=== PATIENT | female | born 1985 | race Two or more races ===

== ENCOUNTER 2021-04-09 15:07 | Outpatient (CLI) | payer OTHER ==
[~2021-04-09 15:07] MED LIST: OSEL75CA; OSEL75CA PO
== END 2021-04-09 16:41 | disposition home or self-care (01) ==
LOC: PRENATAL 15:07
PROVIDERS: ATTEND Obstetrics & Gynecology Maternal & Fetal Medicine
DX: Z36.89 Encounter for other specified antenatal screening (principal); O36.80X1 Pregnancy with inconclusive fetal viability, fetus 1; O09.511 Supervision of elderly primigravida, first trimester; Z3A.11 11 weeks gestation of pregnancy

== ENCOUNTER 2021-06-12 08:17 | Outpatient (CLI) | payer OTHER | END 2021-06-12 09:20 | disposition home or self-care (01) | LOC: PRENATAL 08:17 | PROVIDERS: ATTEND Obstetrics & Gynecology Maternal & Fetal Medicine | DX: O35.0XX1 Maternal care for (suspected) central nervous system malformation in fetus, fetus 1 (principal); O35.3XX1 Maternal care for (suspected) damage to fetus from viral disease in mother, fetus 1; O98.512 Other viral diseases complicating pregnancy, second trimester; O09.522 Supervision of elderly multigravida, second trimester; Z36.89 Encounter for other specified antenatal screening; Z3A.21 21 weeks gestation of pregnancy ==

== ENCOUNTER 2021-08-25 14:57 | Outpatient (CLI) | payer OTHER | END 2021-08-25 20:00 | disposition home or self-care (01) | LOC: OBS/DEL 14:57 | PROVIDERS: ATTEND Obstetrics & Gynecology | DX: O60.03 Preterm labor without delivery, third trimester (principal); Z3A.30 30 weeks gestation of pregnancy ==

== ENCOUNTER 2021-09-04 09:37 | Outpatient (CLI) | payer OTHER | END 2021-09-04 10:38 | disposition home or self-care (01) | LOC: PRENATAL 09:37 | PROVIDERS: ATTEND Obstetrics & Gynecology Maternal & Fetal Medicine | DX: O09.529 Supervision of elderly multigravida, unspecified trimester (principal); O35.0XX0 Maternal care for (suspected) central nervous system malformation in fetus, not applicable or unspecified; O26.849 Uterine size-date discrepancy, unspecified trimester ==

== ENCOUNTER 2024-02-23 10:06 | Day surgery (SDC) | payer OTHER ==
[2024-02-10 11:23] LABS: HEMATOCRIT 39.9 % (36.0-45.00); HEMOGLOBIN 13.9 g/dL (12.0-15.00); MEAN CELL VOLUME 90.6 fL (80.00-100.00); MEAN CORPUSCULAR HEMOGLOBIN 31.6 pg (27.00-32.0); MEAN CORPUSCULAR HGB CONC 34.9 g/dl (32.0-36.0); PLATELET COUNT 377 K/uL (150-450); RED CELL DISTRIBUTION WIDTH 12.6 % (11.5-14.5)
[2024-02-10 11:46] LABS: INR 1.02; PARTIAL THROMBOPLASTIN TIME 27.9 SECONDS (22.0-34.0); PROTHROMBIN TIME 10.7 SECONDS (9.0-11.5)
[2024-02-10 11:47] LABS: URINE APPEARANCE Clear; URINE BILIRRUBIN Negative (NEGATIVE); URINE BLOOD Trace; URINE COLOR Yellow; URINE GLUCOSE Negative (NEGATIVE); URINE KETONE Negative (NEGATIVE); URINE LEUKOCYTE Negative; URINE NITRATE Negative; URINE PROTEIN Negative (NEGATIVE); URINE UROBILINOGEN 0.2 E.U./dl
[2024-02-10 11:52] LABS: URINE BACTERIA 770.9 uL (0.0-1933); URINE EPITHELIAL CELLS 18.6 uL (0.0-38.8); URINE RBC 4.8 uL (0.0-20.8); URINE WBC 9.5 uL (0.0-23.2)
[2024-02-10 12:06] LABS: CALCIUM 9.2 mg/dL (8.5-10.1); CREATININE SERUM 0.75 mg/dL (0.55-1.02); GFR 86.95; POTASSIUM 4.53 mEq/L (3.5-5.1)
[~2024-02-23 10:06] MED LIST changes: +BUSPIRONE HCL7.5 MG PO; +CONCERTA36 MG PO; +FLUOXETINE PO; +LOMOTRIGINE PO; +MELATONIN3 M3 PO; +PRENATAL TABLE1 EAC3 PO
[2024-02-23] MEDS ORDERED: CEFAZOLIN SODIUM 1,000 MG VIAL ONE ×2 (11:53→11:54)
[2024-02-23] MEDS ORDERED: BUPIVACAINE HCL/MPF 0.5% 30ML VIAL ONE (12:35)
[2024-02-23] MEDS ORDERED: FAMOTIDINE/PF 20 MG/2 ML VIAL ONE (12:35)
[2024-02-23] MEDS ORDERED: SUGAMMADEX SODIUM 200 MG/2 ML VIAL IV ONE ×2 (14:00→14:15)
[2024-02-23] MEDS ORDERED: TRAMADOL HCL50 MG PO (14:11)
[2024-02-23] MEDS ORDERED: MIRALAX17 GM PO (14:11)
[2024-02-23] MEDS ORDERED: TYLENOL ARTHRI650 MG PO (14:11)
[2024-02-23] MEDS ORDERED: KETO10TA2 PO (14:11)
== END 2024-02-23 16:40 | disposition home or self-care (01) ==
LOC: CIR.AMB 10:06
PROVIDERS: ATTEND Surgery
DX: K42.0 Umbilical hernia with obstruction, without gangrene (principal); F41.8 Other specified anxiety disorders; K29.70 Gastritis, unspecified, without bleeding